=== PATIENT | male | born 1990 | race Caucasian/White ===

== ENCOUNTER 2021-10-02 16:37 | Emergency (ER) | payer BC, SELFPAY ==
[2021-10-02 18:00] VITALS: BP 125/64; PULSE 78; RESP 20; TEMP 37.3; O2SAT 98; BMI 39.6
[2021-10-02 18:31] LABS: UTC Influenza A Antigen Negative (Negative)
[2021-10-02 18:32] LABS: UTC Influenza B Antigen Negative (Negative)
--- NOTE | 2021-10-02 18:38 | HMH.EDUTC ---
[facility] [place] Impression: Strep throat Otitis media Qualifiers: Otitis media type: suppurative Chronicity: acute Laterality: bilateral Recurrence: non-recurrent Spontaneous tympanic membrane rupture: with spontaneous rupture Qualified Code(s): H66.013 - Acute suppurative otitis media with spontaneous rupture of ear drum, bilateral Ruptured tympanic membrane Qualifiers: Laterality: right Qualified Code(s): H72.91 - Unspecified perforation of tympanic membrane, right ear Disposition: Home, Self-Care Condition on Discharge: Good Instructions: Strep Throat, DI for Strep Throat, DI for Tympanic Membrane Perforation-Adult Additional Instructions: Drink plenty of fluids. Take tylenol or ibuprofen for pain or fever. Take the medications as directed. Follow up with your regular doctor. GO TO THE ER FOR ANY WORSENING SYMPTOMS Throw your tooth brush away and get a new one. The cough medication (promethazine dm) will make you drowsy, so don't drive or operate heavy machinery after taking it. Prescriptions: Promethazine/Dextromethorphan [Promethazine-Dm Syrup] 5 ml PO Q6HP PRN #240 ml PRN Reason: Cough Transmission Status: Received by [facility]/pharmacy #[id number] Amoxicillin/Potassium Clav [Augmentin 875-125 Tablet] 1 tab PO Q12H 10 Days #20 tab Transmission Status: Received by [facility]/pharmacy #[id number] methylPREDNISolone [Medrol] 4 mg PO DIRECTED 6 Days #21 packet Transmission Status: Received by [facility]/pharmacy #[id number] Referrals: Provider,Referral, MD [Primary Care Provider] - Forms: Work/School Release Time of Disposition: 19:23 Medical Decision Making - Medical Records Medical records reviewed: No: I reviewed the patient's medical records. - [place] Inquiry Pt receiving controlled substance: No Vital Signs: 10/02/21 18:00 10/02/21 19:10 Temperature 99.1 F 99.1 F Temperature Source Oral Pulse Rate 78 Pulse Rate [Right Brachial] 78 Respiratory Rate 20 20 Blood Pressure 125/64 Blood Pressure [Right Arm] 125/64 Blood Pressure Mean [Right Arm] 84 Blood Pressure Source [Right Arm] Automatic Cuff Blood Pressure Position [Right Arm] Sitting 02 Sat by Pulse Oximetry 98 Oxygen Delivery Method Room Air - Lab Data Lab results reviewed: Yes: I reviewed the patient's lab results. Lab Results 10/02/21 18:14: Influenza Type A Ag Negative, Influenza Type B Ag Negative 10/02/21 18:58: Strep Scn Rapid [facility] Positive A Orders (Tests/Meds): ED MEDICATIONS Discontinued Medications Generic Name Dose Route Start Last Admin Trade Name Diana PRN Reason Stop Dose Admin Acetaminophen 650 mg 10/02/21 18:25 10/02/21 18:27 Acetaminophen 325mg Tab PO 10/02/21 18:26 650 mg ONCE ONE Administration Amoxicillin 500 mg 10/02/21 19:22 10/02/21 19:26 Amoxicillin 500mg Capsule PO 10/02/21 19:23 500 mg ONCE ONE Administration ORDERS Category Date Time Status Covid-19 Nasal PCR ([facility]) Routine Lab 10/02/21 18:15 [place] [facility] [place] - General Stated complaint: covid symptoms Time Seen by Provider: 10/02/21 18:38 Mode of Arrival: Ambulatory Source of Information: Patient Limitations: No Limitations Description of Symptoms (Recalled from Triage Doc. by RN): PATIENT C/O NAUSEA, CHILLS, FEVER, BODY ACHES, HEADACHE, FATIGUE AND COUGH X 2 DAYS HEENT Symptoms (Recalled from RN notes): Yes Resp Symptoms (Recalled from RN notes): Yes Skin Symptoms (Recalled from RN notes): No MS Symptoms (Recalled from RN notes): No Functional Status (Recalled from RN notes): WNL - History of Present Illness Provider Complaint: He states that for the past 2 days he has had a sore throat, ear pain, chilling, body aches and a cough. He denies any known contact with covid-19. He has not been vaccinated for covid-19. - Related Data Previous Rx's Medication Instructions Recorded Amoxicillin/Potassium Clav 1 tab PO Q12H 10 Days #20 tab 10/02/21 [Augmentin 875-125 Tablet] Prom
[2021-10-02 19:05] LABS: UTC Strep Screen (Rapid) Positive (Negative)
[2021-10-02 19:10] VITALS: BP 125/64; PULSE 78; RESP 20; TEMP 37.3; O2SAT 98
== END 2021-10-02 19:28 | disposition home or self-care (01) ==
PROVIDERS: Emergency Provider Nurse Practitioner Family
DX: U07.1 COVID-19 (principal); J02.0 Streptococcal pharyngitis; H66.013 Acute suppurative otitis media with spontaneous rupture of ear drum, bilateral; H72.91 Unspecified perforation of tympanic membrane, right ear
CPT/HCPCS: 87804; 87880; 99203; C9803; G0463; U0003; U0005